=== PATIENT | male | born 2000 | race Caucasian/White ===

== ENCOUNTER 2024-09-07 18:15 | Emergency (ER) | payer OTHER, SELFPAY ==
[2024-09-07 18:22] VITALS: BP 140/66; PULSE 82; RESP 16; TEMP 36.5; O2SAT 95; BMI 26.5
--- NOTE | 2024-09-07 18:23 | ED.WOUNDLAC ---
HPI - Wound/Laceration General Chief Complaint: Skin/Abscess/Foreign Body Stated Complaint: rt arm injury Time Seen by Provider: 09/07/24 19:18 Source: patient, RN notes reviewed and old records reviewed Mode of arrival: ambulatory Limitations: no limitations History of Present Illness ED Provider: Malou HPI narrative: 24-year-old male presents for evaluation of a laceration to his right arm. Patient was at work when he bent over and accidentally cut his arm on a piece of metal He has a small laceration to the right upper arm He is unsure when his last tetanus was Has no pain His eye he complains of some numbness to the area so of the right elbow but not extending down towards his fingers. Related Data Allergies Allergy/AdvReac Type Severity Reaction Status Date / Time No Known Allergies Allergy Verified 09/07/24 18:25 Review of Systems Constitutional: Constitutional: Denies body ache(s) and Denies chills Musculoskeletal: Musculoskeletal: Denies arthralgias, Denies joint swelling, Denies limited range of motion and Reports tingling Integumentary/Breasts: Skin/Breast: Reports wounds Neurologic: Reports tingling and Reports paresthesias PMFSH Social History Social History Advance Directives: No Advance Directives Information Provided: Yes Physical Exam Vital Signs: Vital Signs: Last Vital Signs Temp 97.7 F 09/07/24 18:22 Pulse 82 09/07/24 18:22 Resp 16 09/07/24 18:22 BP 140/66 H 09/07/24 18:22 Pulse Ox 95 09/07/24 18:22 O2 Del Method Room Air 09/07/24 18:22 BMI result Body Mass Index 26.5 Const: General: healthy appearing, comfortable, no acute distress, alert and awake Nutritional Appearance: well nourished Orientation/consciousness: patient oriented x3 HEENT: Head: Yes normocephalic and Yes atraumatic Eyes: Eyelids: Yes eyelids normal Conjunctivae: conjunctivae normal Sclerae: sclerae normal Corneas: corneas normal Pupils: Equal, round and reactive pupils present EOM: EOMs intact bilaterally Neck: Neck: Yes full ROM Resp: Effort & Inspection: normal respiratory effort, able to speak in complete sentences and not labored Skin: Other: Patient has a 2 cm linear, full-thickness laceration on the ulnar side of the right elbow. There is fatty tissue exposed, no evidence of tendon, nerve or vasculature injury General skin exam: elasticity normal Neuro: General: patient oriented x3 Cranial nerves: Yes Equal, round and reactive pupils present and Yes Bilaterally intact EOM present Cognition (Neuro): normal cognition Extrem: Other: Full range of motion flexion-extension of the right elbow and all digits of the right hand. Course Course Course Narrative: This is a Rapid Medical Examination (RME) performed by Anais Harris PA-C in triage. Full HPI, ROS, assessment and treatment plan per primary provider in the Main ED. 24 yo male presents to the ER for evaluation of a laceration to the right upper arm sustained on a metal band at work. exam with a 3cm wound with exposed adipose tissue, no significant bleeding. he thinks his TDAP is UTD. Plan: will need lac repair Medications Administered Discontinued Medications Generic Name Dose Route Start Last Admin Trade Name Freq PRN Reason Stop Dose Admin Diphtheria/Tetanus/Acell Pertussis 0.5 ml 09/07/24 19:23 09/07/24 19:49 Diphth,Pertus(Acell),Tet Adult 0.5 Ml Syringe IM 09/07/24 19:24 0.5 ml .ONCE ONE Administration Lidocaine/Epinephrine 10 ml 09/07/24 19:23 09/07/24 19:49 Lidocaine Hcl 1%/Epi 1:100,000 10 Ml Vial INFILTRATI 09/07/24 19:24 10 ml ONCE ONE Administration Medical Decision Making Medical Decision Making MDM Narrative: 24-year-old male presents for evaluation of a laceration to his right elbow. This is fairly superficial but is full-thickness. There was no evidence of tendon injury. See procedure note for wound repair. Procedure was performed by PA studentMike under my direct supervision. But the patient's tetanus was updated Differential Diagnosis Differential Diagnoses: The differential diagnosis associated with the presentation includes Laceration Skin tear Puncture wound Abrasion Procedures Laceration Laceration 1: Site: upper extremity Side (If applicable): right Size (cm): 2 Description: linear Depth: simple, single layer Local Anesthetic: lidocaine 1% and with epi Amount of anesthesia used (mL): 4 Pre-repair: wound explored, irrigated extensively and deep structures intact Skin layer closed with: nylon Size (cm): 5-0 Number of sutures: 3 Technique: simple, interrupted Discharge Plan Discharge Clinical Impression: Laceration of right upper arm Patient Disposition: Home, Self-Care Instructions: Laceration (ED) Additional Instructions: You had 3 sutures placed to your right arm. These can be removed in 10-14 days Keep the area clean and dry Follow-up with your primary doctor, return for new or worsening symptoms Your tetanus was updated today Stand Alone Forms: Work/School Release Interventions: ED Discharge Assessment Last Done: 09/07/24 20:14 Print Language: [place]al[place]
[2024-09-07] MEDS: Lidocaine HCl 1%/Epi 1:100,000 10 ML VIAL INFILTRATI (19:49)
[2024-09-07] MEDS: Diphth,Pertus(ACell),Tet Adult 0.5 ML SYRINGE IM (19:49)
[2024-09-07 20:14] VITALS: BP 128/65; PULSE 64; RESP 16; TEMP 37.1; O2SAT 99
== END 2024-09-07 20:15 | disposition home or self-care (01) ==
PROVIDERS: Emergency Provider Emergency Medicine
DX: S41.111A Laceration without foreign body of right upper arm, initial encounter (principal); W26.8XXA Contact with other sharp object(s), not elsewhere classified, initial encounter; Y93.9 Activity, unspecified; Y92.9 Unspecified place or not applicable; Y99.0 Civilian activity done for income or pay; Z23 Encounter for immunization
CPT/HCPCS: 12001; 90471; 90715; 99283; 99284; J2004